=== PATIENT | female | born 1970 | race Two or more races ===

== ENCOUNTER 2017-06-18 05:48 | Day surgery (SDC) | payer OTHER ==
[2017-06-16 12:41] VITALS: BP 115/72
[2017-06-16 13:22] LABS: BASOPHILS # (AUTO) 0.03 x10^3/uL (0-0.1); BASOPHILS % (AUTO) 1 % (0-1); EOSINOPHILS # (AUTO) 0.07 x10^3/uL (0-0.4); EOSINOPHILS % (AUTO) 1 % (1-7); LYMPHOCYTES # (AUTO) 1.45 x10^3/uL (1-3.4); LYMPHOCYTES % (AUTO) 24 % (22-44); MD NO; MEAN CORPUSCULAR HEMOGLOBIN 26.6 pg (27.0-34.8); MEAN CORPUSCULAR HGB CONC 33.1 g/dL (32.4-35.8); MEAN CORPUSCULAR VOLUME 80.5 fL (80-100); MEAN PLATELET VOLUME 9.9 fL (7.4-10.4); MONOCYTES # (AUTO) 0.46 x10^3/uL (0.2-0.8); MONOCYTES % (AUTO) 8 % (2-9); NEUTROPHILS # (AUTO) 4.07 x10^3/uL (1.8-6.8); NEUTROPHILS % (AUTO) 67 % (42-75); PLATELET COUNT 241 x10^3/uL (130-400); RED BLOOD COUNT 5.39 x10^6/uL (3.82-5.3); RED CELL DISTRIBUTION WIDTH 15.3 % (9.6-15.2)
[2017-06-16 13:27] LABS: ALANINE AMINOTRANSFERASE 15 U/L (12-78); ALBUMIN 3.8 g/dL (3.4-5.0); ANION GAP 5 mmol/L (5-15); CALCIUM 9.6 mg/dL (8.5-10.1); CHLORIDE 111 mmol/L (98-107); CREATININE 0.68 mg/dL (0.55-1.02)
[2017-06-16 13:29] LABS: ALKALINE PHOSPHATASE 60 U/L (45-117); BILIRUBIN,TOTAL 0.3 mg/dL (0.2-1.0); TOTAL PROTEIN 7.6 g/dL (6.4-8.2)
[~2017-06-18] VITALS: Ht 162.6 cm; Wt 54.1 kg
[~2017-06-18 05:48] MED LIST: ALOE5POW2 PO; ARNICA; CHOL500050 PO; TURMERIC PO
[2017-06-18 06:46] LABS: HCG UR SG >= 1.030 (1.003-1.030)
[2017-06-18] MEDS ORDERED: ONDANSETRON 2MG/ML, 2ML ONE (07:01)
[2017-06-18] MEDS ORDERED: DEXAMETHASONE 4 MG/ML, 1ML ONE (07:01)
[2017-06-18] MEDS ORDERED: PROPOFOL 10 MG/ML, 20ML ONE ×2 (07:01→07:32)
[2017-06-18] MEDS ORDERED: CEFAZOLIN 1,000 MG ONE (07:01)
[2017-06-18] MEDS ORDERED: LACTATED RINGERS 1,000 ML IV SCH (07:04)
[2017-06-18] MEDS ORDERED: EPINEPHRINE 1 MG/ML, 1ML ONE (07:15)
[2017-06-18] MEDS ORDERED: SILVER NITRATE STICK TP ONE (07:15)
[2017-06-18] MEDS ORDERED: BUPIVACAINE/PF 0.25% ONE (07:15)
[2017-06-18] MEDS ORDERED: MIDAZOLAM 1 MG/ML, 2ML ONE (07:32)
[2017-06-18] MEDS ORDERED: FENTANYL PF 100 MCG/2ML ONE (07:32)
[2017-06-18] MEDS ORDERED: SUCCINYLCHOLINE 20 MG/ML, 10ML ONE (07:33)
[2017-06-18] MEDS ORDERED: PROMETHAZINE 25 MG/ML, 1ML IV PRN (08:30)
[2017-06-18] MEDS ORDERED: ONDANSETRON 2MG/ML, 2ML IVPush PRN (08:30)
[2017-06-18] MEDS ORDERED: morphine SULFATE 10 MG/ML, 1ML IV PRN (08:30)
[2017-06-18] MEDS ORDERED: FENTANYL PF 100 MCG/2ML IV PRN (08:30)
[2017-06-18] MEDS ORDERED: OXYcodone 5 MG/5 ML ORAL.SOL UDC PO PRN (08:30)
[2017-06-18] MEDS ORDERED: EPHEDRINE 50 MG/ML, 1ML ONE (08:38)
[2017-06-18] MEDS ORDERED: KETOROLAC 30 MG/1 ML ONE (09:14)
[2017-06-18] MEDS ORDERED: KETOROLAC 30 MG/1 ML IV PRN (09:30)
== END 2017-06-18 12:00 ==
LOC: OUT 05:48
PROVIDERS: ATTEND Obstetrics & Gynecology
DX: N92.0 Excessive and frequent menstruation with regular cycle (principal); D25.1 Intramural leiomyoma of uterus; D50.9 Iron deficiency anemia, unspecified; Z88.0 Allergy status to penicillin; N97.9 Female infertility, unspecified; G43.909 Migraine, unspecified, not intractable, without status migrainosus; Z98.890 Other specified postprocedural states
CPT/HCPCS: 36415; 58558; 80053; 81025; 85025; 86850; 86900; 88305; J0171; J0330; J0690; J1100; J1885; J2250; J2405; J2704; J3010; J3490; J7120